=== PATIENT | male | born 1970 | race Caucasian/White ===

== ENCOUNTER 2016-09-24 06:35 | Emergency (ER) | payer OTHER, SELFPAY ==
[~2016-09-24] VITALS: Ht 175.3 cm; Wt 88.5 kg
== END 2016-09-24 08:23 | disposition short-term general hospital (02) ==
LOC: ER 06:35
DX: K52.9 Noninfective gastroenteritis and colitis, unspecified (principal); Z87.891 Personal history of nicotine dependence